=== PATIENT | male | born 1940 | race African-American/Black ===

== ENCOUNTER 2019-08-11 05:46 | Emergency (ER) | payer OTHER ==
[~2019-08-11] VITALS: Ht 177.8 cm; Wt 73.0 kg
[2019-08-11] MEDS ORDERED: VISCOUS LIDOCAINE 2% 15 ML UDC MM PRN (07:15)
[2019-08-11 08:21] VITALS: BP 134/78
== END 2019-08-11 08:27 | disposition home or self-care (01) ==
LOC: ER 05:46
DX: R04.0 Epistaxis (principal); I10 Essential (primary) hypertension; J44.9 Chronic obstructive pulmonary disease, unspecified; E78.00 Pure hypercholesterolemia, unspecified; E03.9 Hypothyroidism, unspecified; Z90.2 Acquired absence of lung [part of]; Z85.118 Personal history of other malignant neoplasm of bronchus and lung; Z86.73 Personal history of transient ischemic attack (TIA), and cerebral infarction without residual deficits; Z88.0 Allergy status to penicillin
CPT/HCPCS: 30901; 99284